=== PATIENT | male | born 1995 | race African-American/Black ===

== ENCOUNTER 2016-06-12 13:30 | Emergency (ER) | payer SELFPAY ==
[~2016-06-12] VITALS: Ht 180.3 cm; Wt 80.0 kg
[2016-06-12] MEDS ORDERED: BACITRACIN ZINC OINT UDPKT TOP ONE (16:15)
[2016-06-12] MEDS ORDERED: LIDOCAINE HCL 1% 20ML VIAL (Pyxis) INJ MC ONE (16:15)
[2016-06-12 19:20] VITALS: BP 129/71
== END 2016-06-12 19:29 | disposition home or self-care (01) ==
LOC: ER 13:46
DX: S91.312A Laceration without foreign body, left foot, initial encounter (principal); F17.210 Nicotine dependence, cigarettes, uncomplicated; F12.10 Cannabis abuse, uncomplicated; Z88.6 Allergy status to analgesic agent; W23.0XXA Caught, crushed, jammed, or pinched between moving objects, initial encounter; Y93.39 Activity, other involving climbing, rappelling and jumping off; Y92.89 Other specified places as the place of occurrence of the external cause; Y99.8 Other external cause status
CPT/HCPCS: 73130; 73562; 73590; 73610; 73630; 99284; A4217; J3490; Z7610